=== PATIENT | female | born 1960 | race Caucasian/White ===

== ENCOUNTER 2017-12-10 18:40 | Emergency (ER) | payer OTHER ==
[2017-12-10] MEDS ORDERED: Doxycycline 100 MG Tab PO ONE (18:41)
[2017-12-10] MEDS: Nitroglycerin 0.4 MG Tab.SL SL PRN ×3 (18:48→19:00)
[2017-12-10] MEDS ORDERED: Aspirin 81 MG Tab.Chew PO ONE (18:54)
--- NOTE | 2017-12-10 19:22 | EDM.PDOC ---
ED HPI GENERAL MEDICAL PROBLEM - General Chief Complaint: Cardiovascular Problem Stated Complaint: Chest Pain Time Seen by Provider: 12/10/17 19:08 Source of Information: Reports: Patient History Limitations: Reports: No Limitations - History of Present Illness INITIAL COMMENTS - FREE TEXT/NARRATIVE: Sia is a 57 year old female, with a past medical history of hypertension and obesity, who presents to the ED with c/o chest pain, elevated blood pressure, and racing heart. She reports she woke up this morning and had a headache. She figured the headache was caused by her elevated blood pressure. She did check it this morning and got a reading of approximately 160's/100's. She then reports that she was working today and kind of felt more fatigued than normal. She then reports that this evening she had onset of left upper chest pain. She describes the pain as sharp. She noticed that her heart was beating faster than normal and her blood pressure was higher than normal so she presented to the ED. She reports she hasn't been to the doctor since January 2017, when her lisinopril was last filled. She reports she has been feeling well since then and her blood pressure is usually much lower. She does report some dyspnea with exertion. She denies any nausea, vomiting, diaphoresis, dizziness, reflux symptoms, abdominal pain, diarrhea. 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 She reports she has been coughing some. Denies any fever or chills. Pain did improve after 1 dose of nitroglycerin. Patient was given 324 mg chewable aspirin at time of presentation. Onset: Today Location: Reports: Chest Quality: Reports: Pressure, Sharp Severity: Mild Associated Symptoms: Reports: Chest Pain, Cough, Headaches. Denies: Confusion, cough w sputum, Diaphoresis, Fever/Chills, Loss of Appetite, Malaise, Nausea/ Vomiting, Rash, Seizure, Shortness of Breath, Syncope, Weakness Left Arm Pain Score (Numeric/FACES): 3 - Related Data Allergies Allergy/AdvReac Type Severity Reaction Status Date / Time gluten Allergy Stomach Verified 12/10/17 18:59 Ache Home Meds: Home Meds Doxycycline [Vibramycin] 100 mg PO DAILY 3 Days #6 tab 12/10/17 [Rx] Ibuprofen [Advil Migraine] 200 mg PO PRN 12/10/17 [History] Lisinopril 20 mg PO DAILY 12/10/17 [History] Lisinopril 40 mg PO DAILY 30 Days #30 tablet 12/10/17 [Rx] Multivitamin [Multivitamins] 1 cap PO DAILY 12/10/17 [History] Social & Family History - Tobacco Use Smoking Status *Q: Never Smoker - Caffeine Use Caffeine Use: Reports: Soda ED ROS GENERAL - Review of Systems Review Of Systems: See Below Constitutional: Reports: Fatigue. Denies: Fever, Chills, Malaise, Weakness HEENT: Reports: Rhinitis, Sinus Problem Respiratory: Reports: Cough. Denies: Shortness of Breath, Wheezing, Sputum Cardiovascular: Reports: Chest Pain, Blood Pressure Problem, Dyspnea on Exertion , Edema. Denies: Lightheadedness, Syncope Endocrine: Reports: Fatigue GI/Abdominal: Denies: Abdominal Pain, Diarrhea, Decreased Appetite, Nausea, Vomiting : Reports: Frequency. Denies: Dysuria, Urgency Musculoskeletal: Reports: No Symptoms Skin: Reports: No Symptoms Neurological: Reports: Headache. Denies: Confusion, Dizziness Psychiatric: Reports: No Symptoms Hematologic/Lymphatic: Reports: No Symptoms Immunologic: Reports: No Symptoms ED EXAM, GENERAL - Physical Exam Exam: See Below Exam Limited By: No Limitations General Appearance: Alert, WD/WN, No Apparent Distress Eye Exam: Bilateral Eye: EOMI Head: Atraumatic, Normocephalic Neck: Normal Inspection, Supple, Non-Tender, Full Range of Motion Respiratory/Chest: No Respiratory Distress, Lungs Clear, Normal Breath Sounds, No Accessory Muscle Use, Chest Non-Tender Cardiovascular: Normal Peripheral Pulses, No Edema, No Gallop, No JVD, No Murmur , No Rub, Tachycardia GI/Abdominal: Normal Bowel Sounds, Soft, Non-Tender, No Organomegaly, No Distention, No Abnormal Bruit, No Mass Back Exam: Normal Inspection, Full Range of Motion, NT Extremities: Normal Inspection, Normal Range of Motion, Non-Tender, No Pedal Edema, Normal Capillary Refill, Other (trace edema to BLE) Neurological: Alert, Oriented, CN II-XII Intact, Normal Cognition Psychiatric: Normal Affect, Normal Mood Skin Exam: Warm, Dry, Intact, Normal Color, No Rash Course - Vital Signs Last Recorded V/S: Last Vital Signs Temp 96.9 F 12/10/17 18:50 Pulse 77 12/10/17 20:12 Resp 16 12/10/17 18:50 BP 157/87 H 12/10/17 20:12 Pulse Ox 100 12/10/17 18:50 - Orders/Labs/Meds Orders: Active Orders 24 hr Category Date Time Status EKG Documentation Completion [RC] STAT Care 12/10/17 18:55 Active Chest 2V [CR] Stat Exams 12/10/17 18:55 Taken Labs: Laboratory Tests 12/10/17 12/10/17 12/10/17 Range/Units 19:05 19:05 19:05 WBC 11.4 H (5.0-10.0) 10^3/uL RBC 3.98 L (4.00-5.50) 10^6/uL Hgb 11.4 L (12.0-16.0) g/dL Hct 34.8 L (37.0-47.0) % MCV 87.4 (82.0-94.0) fL MCH 28.6 (27.0-32.0) pg MCHC 32.8 L (33.0-38.0) g/dL RDW Coeff of Nicole 13.5 (11.0-15.0) % Plt Count 283 (150-400) 10^3/uL Neut % (Auto) 64.0 (35-85) % Lymph % (Auto) 23.7 (10-55) % Haines % (Auto) 8.6 (0-16) % Eos % (Auto) 3.5 (0-5) % Baso % (Auto) 0.2 (0-3) % Neut # (Auto) 7.28 H (1.80-7.00) 10^3/uL Lymph # (Auto) 2.69 (1.00-4.80) 10^3/uL Haines # (Auto) 0.98 H (0.00-0.80) 10^3/uL Eos # (Auto) 0.40 (0.00-0.45) 10^3/uL Baso # (Auto) 0.02 10^3/uL PT 10.2 (9.7-12.3) SEC INR 0.95 (0.92-1.18) APTT 26.8 (20.0-45.0) SEC Sodium 142 (136-145) mEq/L Potassium 4.0 (3.5-5.0) mEq/L Chloride 107 H (98-106) mEq/L Carbon Dioxide 27 (21-32) mmol/L BUN 19 H (7-18) mg/dL Creatinine 0.9 (0.6-1.0) mg/dL Est Cr Clr Drug Dosing 70.41 mL/min Estimated GFR (MDRD) > 60 (>=60) mL/min Glucose 133 H D (75-99) mg/dL Calcium 8.7 (8.4-10.1) mg/dL Lactate Dehydrogenase 159 (100-190) U/L Creatine Kinase 73 (21-215) U/L Troponin I < 0.017 (0.00-0.06) ng/mL Meds: Medications Discontinued Medications Generic Name Dose Route Start Last Admin Trade Name Freq PRN Reason Stop Dose Admin Aspirin 324 mg 12/10/17 18:54 12/10/17 18:48 Aspirin PO 12/10/17 18:55 324 mg ONETIME ONE Administration Doxycycline Monohydrate 2 packet 12/10/17 19:55 Take Home: Doxycycline 100 Mg, 4 Tab Pack PO 12/10/17 19:56 ONETIME ONE Metoprolol Tartrate 2.5 mg 12/10/17 19:24 12/10/17 19:29 Lopressor IVPUSH 12/10/17 19:25 2.5 mg ONETIME ONE Administration Metoprolol Tartrate 2.5 mg 12/10/17 19:56 12/10/17 19:59 Lopressor IVPUSH 12/10/17 19:57 2.5 mg ONETIME ONE Administration Nitroglycerin 0.4 mg 12/10/17 18:53 12/10/17 19:00 Nitrostat SL 0.4 mg Q5M PRN Administration Chest Pain - Re-Assessments/Exams Free Text/Narrative Re-Assessment/Exam: 12/10/17 19:32 Patent remains tachycardia and BP remains elevated despite 3 nitro doses. Will give metoprolol 2.5 mg IV. 12/10/17 19:52 Discussed labs, EKG, and CXR with patient. Cardiac enzymes all negative. EKG shows sinus tachycardia. WBCs and neutrophils elevated. All other labs stable. I do question LLL infiltrate. Given symptoms of sinusitic and cough, will treat with antibiotics. 12/10/17 19:56 BP remains elevated. Will give additional 2.5 mg metoprolol. 12/10/17 20:16 BP improved with second dose of metoprolol. Will discharge home. Departure - Departure Time of Disposition: 20:13 Disposition: Home, Self-Care 01 Condition: Good Clinical Impression: Tachycardia Hypertension Qualifiers: Hypertension type: essential hypertension Qualified Code(s): I10 - Essential ( primary) hypertension Pneumonia Qualifiers: Pneumonia type: due to unspecified organism Laterality: left Lung location: lower lobe of lung Qualified Code(s): J18.1 - Lobar pneumonia, unspecified organism Prescriptions: Doxycycline [Vibramycin] 100 mg PO DAILY 3 Days #6 tab Lisinopril 40 mg PO DAILY 30 Days #30 tablet Instructions: Sinus Tachycardia, Hypertension, [id number] Referrals: Jovan Cota PA-C [Primary Care Provider] - Forms: ED Department Discharge Additional Instructions: Increase lisinopril to 40 mg daily. Check home BP twice daily. Keep log and bring to f/u appointment with Yousif. Antibiotic as directed Push fluids Follow up with PCP for recheck of hypertension this week - My Orders Last 24 Hours: My Active Orders 12/10/17 18:55 EKG Documentation Completion [RC] STAT Chest 2V [CR] Stat - Assessment/Plan Last 24 Hours: My Active Orders 12/10/17 18:55 EKG Documentation Completion [RC] STAT Chest 2V [CR] Stat
[2017-12-10] MEDS ORDERED: Metoprolol Tartrate 5 MG/5 ML SDV IVPUSH ONE ×2 (19:24→19:56)
[2017-12-10 19:29] LABS: CHLORIDE,CL 107 mEq/L (98-106); SODIUM,NA 142 mEq/L (136-145)
[2017-12-10] MEDS ORDERED: Take Home: Doxycycline 100 MG Tab, 4 Tab Pack PO ONE (19:55)
== END 2017-12-10 20:26 | disposition home or self-care (01) ==
LOC: CC.ED 18:40
DX: J18.9 Pneumonia, unspecified organism (principal); R00.0 Tachycardia, unspecified; I10 Essential (primary) hypertension; Z91.048 Other nonmedicinal substance allergy status; Z79.899 Other long term (current) drug therapy
CPT/HCPCS: 36415; 71046; 80048; 82550; 83615; 84484; 85025; 85610; 85730; 93005; 96374; 96376; 99285; A9270-GY; J3490

== ENCOUNTER 2019-09-02 14:52 | Emergency (ER) | payer OTHER ==
[2019-09-02] MEDS ORDERED: Acetaminophen/HYDROcodone 325-5 MG Tab PO ONE (14:53)
--- NOTE | 2019-09-02 15:08 | EDM.PDOC ---
ED HPI GENERAL MEDICAL PROBLEM - General Chief Complaint: Lower Extremity Injury/Pain Stated Complaint: RIGH KNEE INJURY Time Seen by Provider: 09/02/19 15:03 Source of Information: Reports: Patient, Family History Limitations: Reports: No Limitations - History of Present Illness INITIAL COMMENTS - FREE TEXT/NARRATIVE: in with c/o right knee started hurting yesterday, no injury, was going up the steps at [employer] today and right knee "popped", has had pain since, no ankle or hip pain, no swelling, no numbness or tingling, no other sx. Onset: Today Duration: Hour(s): Location: Reports: Lower Extremity, Right Quality: Reports: Ache Severity: Mild Improves with: Reports: None Worsens with: Reports: Movement Context: Reports: Activity Associated Symptoms: Reports: No Other Symptoms. 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: Other (see below) (none) Right Knee Pain Score (Numeric/FACES): 9 - Related Data Allergies Allergy/AdvReac Type Severity Reaction Status Date / Time gluten Allergy Stomach Verified 09/02/19 15:09 Ache Home Meds: Home Meds Ibuprofen [Advil Migraine] 200 mg PO ASDIRECTED PRN 12/10/17 [History] Lisinopril 40 mg PO DAILY 30 Days #30 tablet 12/10/17 [Rx] Multivitamin [Multivitamins] 1 cap PO DAILY 12/10/17 [History] Past Medical History HEENT History: Reports: Impaired Vision Cardiovascular History: Reports: Hypertension Respiratory History: Reports: None Gastrointestinal History: Reports: Other (See Below) Other Gastrointestinal History: Gluten intolerance Genitourinary History: Reports: None 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 Musculoskeletal History: Reports: None Neurological History: Reports: None Psychiatric History: Reports: None Endocrine/Metabolic History: Reports: None Hematologic History: Reports: None Immunologic History: Reports: None Oncologic (Cancer) History: Reports: None Dermatologic History: Reports: None - Infectious Disease History Infectious Disease History: Reports: None - Past Surgical History Head Surgeries/Procedures: Reports: None HEENT Surgical History: Reports: None Cardiovascular Surgical History: Reports: None Respiratory Surgical History: Reports: None GI Surgical History: Reports: None Female Surgical History: Reports: Tubal Ligation Endocrine Surgical History: Reports: None Musculoskeletal Surgical History: Reports: None Oncologic Surgical History: Reports: None Social & Family History - Family History Family Medical History: Noncontributory - Caffeine Use Caffeine Use: Reports: Soda Review of Systems - Review of Systems Review Of Systems: See Below Constitutional: Reports: No Symptoms Respiratory: Reports: No Symptoms Cardiovascular: Reports: No Symptoms GI/Abdominal: Reports: No Symptoms Genitourinary: Reports: No Symptoms Musculoskeletal: Reports: Joint Pain (right knee). Denies: Neck Pain, Back Pain , Joint Swelling, Muscle Stiffness Skin: Reports: No Symptoms. Denies: Bruising, Rash, Erythema Neurological: Reports: No Symptoms. Denies: Numbness, Tingling, Weakness Psychiatric: Reports: No Symptoms ED EXAM, GENERAL - Physical Exam Exam: See Below Exam Limited By: No Limitations General Appearance: Alert, WD/WN, No Apparent Distress Ears: Normal External Exam Nose: Normal Inspection Throat/Mouth: Normal Inspection, Normal Voice, No Airway Compromise Head: Atraumatic, Normocephalic Neck: Normal Inspection, Supple, Non-Tender, Full Range of Motion Respiratory/Chest: No Respiratory Distress, Lungs Clear, Normal Breath Sounds, Chest Non-Tender Cardiovascular: Normal Peripheral Pulses, Regular Rate, Rhythm, No Murmur Peripheral Pulses: 2+: Posterior Tibial (R) GI/Abdominal: Non-Tender Back Exam: Normal Inspection, Full Range of Motion Extremities: Normal Inspection, Normal Range of Motion, Normal Capillary Refill , Other (pain right lateral knee with palpation). No: Joint Swelling, Pallor, Redness Neurological: Alert, Oriented, Normal Cognition, No Motor/Sensory Deficits. No : Normal Gait (limping right lower ext) Psychiatric: Normal Affect, Normal Mood Skin Exam: Warm, Dry, Intact, Normal Color, No Rash. No: Ecchymosis, Erythema, Pallor ED TRAUMA EXTREMITY PROCEDURES - Splinting Right Lower Extremity Pre-Procedure NV Status: Normal Post-Procedure NV Status: Normal Splint Material: Other (knee immobilizer) Splint Design: Knee Immobilizer Applied & Form Fitted By: Nurse Provider Post-Splint Application NV Check: NV Status Normal Complications: No Course - Vital Signs Last Recorded V/S: Last Vital Signs Temp 36.7 C 09/02/19 14:55 Pulse 77 09/02/19 14:55 Resp 18 09/02/19 14:55 BP 126/77 09/02/19 14:55 Pulse Ox 100 09/02/19 14:55 - Orders/Labs/Meds Orders: Active Orders 24 hr Category Date Time Status Knee 3V Rt [CR] Stat Exams 09/02/19 15:08 Taken - Radiology Interpretation Free Text/Narrative:: no definite fx, however there is a suspicious area in the proximal tibia which can be a non displaced fx vs a nutrient vessel. radiology reading is pending. all of this has been discussed with the pt and she and her has no questions, Departure - Departure Time of Disposition: 15:41 Disposition: Home, Self-Care 01 Condition: Good Clinical Impression: Sprain of right knee - Discharge Information *PRESCRIPTION DRUG MONITORING PROGRAM REVIEWED*: Not Applicable *COPY OF PRESCRIPTION DRUG MONITORING REPORT IN PATIENT AKANKSHA: Not Applicable Instructions: Knee Sprain, Adult, [id number] Forms: ED Department Discharge Additional Instructions: elevate right leg on two pillows ice off and on frequently for 2 days wear the knee immobilizer and use crutches as discussed follow up with your family doctor this week, call tuesday for an appointment time norco 5/325mg 1 every 6 hours as needed for pain - Problem List & Annotations (1) Sprain of right knee SNOMED Code(s): 18572025 Code(s): S83.91XA - SPRAIN OF UNSPECIFIED SITE OF RIGHT KNEE, INITIAL ENCOUNTER Status: Acute Priority: Medium Qualifiers: Encounter type: initial encounter Involved ligament of knee: lateral collateral ligament Qualified Code(s): S83.421A - Sprain of lateral collateral ligament of right knee, initial encounter - Problem List Review Problem List Initiated/Reviewed/Updated: Yes - My Orders Last 24 Hours: My Active Orders 09/02/19 15:08 Knee 3V Rt [CR] Stat - Assessment/Plan Last 24 Hours: My Active Orders 09/02/19 15:08 Knee 3V Rt [CR] Stat Plan: as above
[2019-09-02] MEDS ORDERED: Take Home: Acetaminophen/HYDROcodone 325-5 MG, 2 Tab Pack PO ONE (15:44)
== END 2019-09-02 16:00 | disposition home or self-care (01) ==
LOC: CC.ED 14:52
DX: S83.91XA Sprain of unspecified site of right knee, initial encounter (principal); I10 Essential (primary) hypertension; Z91.018 Allergy to other foods; Z79.899 Other long term (current) drug therapy; X58.XXXA Exposure to other specified factors, initial encounter; Y93.01 Activity, walking, marching and hiking; Y92.22 Religious institution as the place of occurrence of the external cause
CPT/HCPCS: 73562-RT; 99283-25; A9270-GY